=== PATIENT | male | born 1955 | race Caucasian/White ===

== ENCOUNTER → 2016-07-04 | Outpatient (CLI) | payer MEDICAID ==
[~2016-07-04] MED LIST: ACET325T14 PO; GADOBUTROL 7.5 MMOL/7.5 ML PFS ONE
== END | disposition home or self-care (01) ==
LOC: RAD 14:40
PROVIDERS: ATTEND Internal Medicine Critical Care Medicine
DX: C34.90 Malignant neoplasm of unspecified part of unspecified bronchus or lung (principal); I73.9 Peripheral vascular disease, unspecified
CPT/HCPCS: 70553; A9585

== ENCOUNTER → 2016-07-05 | Outpatient (CLI) | payer MEDICAID ==
[~2016-07-05] MED LIST changes: -GADOBUTROL 7.5 MMOL/7.5 ML PFS ONE
== END | disposition home or self-care (01) ==
LOC: PETCFH 09:11
PROVIDERS: ATTEND Internal Medicine Critical Care Medicine
DX: C34.90 Malignant neoplasm of unspecified part of unspecified bronchus or lung (principal); R59.1 Generalized enlarged lymph nodes
CPT/HCPCS: 78815; A9552

== ENCOUNTER 2016-08-07 12:48 | Emergency (ER) | payer MEDICAID ==
[~2016-08-07] VITALS: Ht 190.5 cm; Wt 68.6 kg
[2016-08-07] MEDS ORDERED: GABA300C10 PO (13:11)
[2016-08-07] MEDS ORDERED: FLUT1BLS INH (13:11)
[2016-08-07] MEDS ORDERED: ADENOSINE 6 MG/2 ML ONE ×2 (13:19→14:06)
[2016-08-07] MEDS ORDERED: SODIUM CHLORIDE FLUSH 10ML SYR IVF ONE (13:30)
[2016-08-07] MEDS ORDERED: ADENOSINE 6 MG/2 ML IVPush ONE (13:30)
[2016-08-07] MEDS ORDERED: ASPIRIN 81 MG TABLET CHEW PO ONE (13:30)
[2016-08-07] MEDS ORDERED: SODIUM CHLORIDE 0.9% 1,000ML IVBOLUS ONE (13:30)
[2016-08-07] MEDS ORDERED: ASPIRIN 81 MG TABLET CHEW ONE (13:31)
[2016-08-07] MEDS ORDERED: PROPOFOL 10 MG/ML, 20ML ONE (14:24)
[2016-08-07 14:37] LABS: BLOOD UREA NITROGEN 13 mg/dL (7-18)
[2016-08-07 14:43] LABS: IS PT STATUS REG ER OR PRE ER? YES
[2016-08-07] MEDS ORDERED: HYDROcodone/APAP 5/325 TABLET PO ONE (15:00)
[2016-08-07] MEDS ORDERED: RIVAROXABAN 20 MG TABLET PO ONE (15:17)
[2016-08-07] MEDS ORDERED: METOPROLOL TARTRATE 25 MG TABLET PO ONE (15:30)
[2016-08-07 16:16] VITALS: BP 119/74
== END 2016-08-07 16:20 | disposition home or self-care (01) ==
LOC: ED 14:20
DX: I48.92 Unspecified atrial flutter (principal); E10.65 Type 1 diabetes mellitus with hyperglycemia; F17.210 Nicotine dependence, cigarettes, uncomplicated; Z85.118 Personal history of other malignant neoplasm of bronchus and lung; Z92.21 Personal history of antineoplastic chemotherapy
CPT/HCPCS: 36415; 71010; 80048; 82040; 83735; 84484; 85025; 92960; 93005; 96361; 96374; 99291; J0153; J7030

== ENCOUNTER → 2016-09-25 | Outpatient (CLI) | payer MEDICAID ==
[~2016-09-25] MED LIST changes: +FLUT1BLS INH; +GABA300C10 PO; +METO25TA4 PO; +OMNIPAQUE 350 MG/ML, 75ML BOTTLE ONE
== END | disposition home or self-care (01) ==
LOC: CFH 13:49
PROVIDERS: ATTEND Internal Medicine Hematology & Oncology
DX: C34.11 Malignant neoplasm of upper lobe, right bronchus or lung (principal); J98.11 Atelectasis; R91.8 Other nonspecific abnormal finding of lung field
CPT/HCPCS: 71260; Q9967

== ENCOUNTER → 2016-10-21 | Outpatient (CLI) | payer MEDICAID ==
[~2016-10-21] MED LIST changes: -OMNIPAQUE 350 MG/ML, 75ML BOTTLE ONE
== END | disposition home or self-care (01) ==
LOC: EDSTATUS 10-06 07:18 → ROC 07:19
PROVIDERS: ATTEND Radiology Radiation Oncology
DX: C34.11 Malignant neoplasm of upper lobe, right bronchus or lung (principal); C44.319 Basal cell carcinoma of skin of other parts of face; J18.9 Pneumonia, unspecified organism; F17.210 Nicotine dependence, cigarettes, uncomplicated; Z92.3 Personal history of irradiation
CPT/HCPCS: 99212; G0463

== ENCOUNTER → 2016-12-18 | Outpatient (CLI) | payer MEDICAID ==
[~2016-12-18] MED LIST changes: +OMNIPAQUE 350 MG/ML, 75ML BOTTLE ONE
== END | disposition home or self-care (01) ==
LOC: CFH 13:00
PROVIDERS: ATTEND Internal Medicine Hematology & Oncology
DX: J90 Pleural effusion, not elsewhere classified (principal); J18.9 Pneumonia, unspecified organism; J98.11 Atelectasis; R91.8 Other nonspecific abnormal finding of lung field; C34.11 Malignant neoplasm of upper lobe, right bronchus or lung
CPT/HCPCS: 71260; 82565; Q9967

== ENCOUNTER → 2017-01-24 | Outpatient (CLI) | payer MEDICAID ==
[~2017-01-24] MED LIST changes: -OMNIPAQUE 350 MG/ML, 75ML BOTTLE ONE
== END | disposition home or self-care (01) ==
LOC: CFH 14:43
PROVIDERS: ATTEND Internal Medicine Cardiovascular Disease
DX: I42.9 Cardiomyopathy, unspecified (principal)
CPT/HCPCS: 93306

== ENCOUNTER → 2017-01-30 | Outpatient (CLI) | payer MEDICAID | END | disposition home or self-care (01) | LOC: ROC 11:20 | PROVIDERS: ATTEND Radiology Radiation Oncology | DX: C34.11 Malignant neoplasm of upper lobe, right bronchus or lung (principal) | CPT/HCPCS: 99212; G0463 ==

== ENCOUNTER → 2017-05-05 | Outpatient (CLI) | payer MEDICAID | END | disposition home or self-care (01) | LOC: ROC 09:48 | PROVIDERS: ATTEND Radiology Radiation Oncology | DX: Z08 Encounter for follow-up examination after completed treatment for malignant neoplasm (principal); C34.11 Malignant neoplasm of upper lobe, right bronchus or lung; C44.91 Basal cell carcinoma of skin, unspecified | CPT/HCPCS: 99212; G0463 ==

== ENCOUNTER 2017-06-17 17:46 | Emergency (ER) | payer MEDICAID ==
[~2017-06-17] VITALS: Ht 190.5 cm; Wt 62.4 kg
[2017-06-17 19:51] LABS: BASOPHILS # (AUTO) 0.03 x10^3/uL (0-0.1); BASOPHILS % (AUTO) 1 % (0-1); EOSINOPHILS # (AUTO) 0.14 x10^3/uL (0-0.4); EOSINOPHILS % (AUTO) 2 % (1-7); LYMPHOCYTES # (AUTO) 1.18 x10^3/uL (1-3.4); LYMPHOCYTES % (AUTO) 20 % (22-44); MD NO; MEAN CORPUSCULAR HEMOGLOBIN 31.5 pg (27.5-34.5); MEAN CORPUSCULAR HGB CONC 33.9 g/dL (33.2-36.2); MEAN CORPUSCULAR VOLUME 92.9 fL (81-97); MONOCYTES # (AUTO) 0.77 x10^3/uL (0.2-0.8); MONOCYTES % (AUTO) 13 % (2-9); NEUTROPHILS # (AUTO) 3.69 x10^3/uL (1.8-6.8); NEUTROPHILS % (AUTO) 64 % (42-75); PLATELET COUNT 254 x10^3/uL (130-400); RED BLOOD COUNT 4.17 x10^6/uL (4.38-5.82)
[2017-06-17 20:00] LABS: INTERNATIONAL NORMALIZED RATIO 0.94 (0.93-1.1); PROTHROMBIN TIME 9.8 Seconds (9.6-11.5)
[2017-06-17] MEDS ORDERED: SODIUM CHLORIDE FLUSH 10ML SYR IVF ONE (20:00)
[2017-06-17 20:02] LABS: ALBUMIN 3.2 g/dL (3.4-5.0); ANION GAP 5 mmol/L (5-15); CALCIUM 8.8 mg/dL (8.5-10.1); CHLORIDE 109 mmol/L (98-107)
[2017-06-17 20:05] LABS: ALANINE AMINOTRANSFERASE 22 U/L (12-78); ALKALINE PHOSPHATASE 66 U/L (45-117); BILIRUBIN,TOTAL 0.4 mg/dL (0.2-1.0); CREATININE 0.81 mg/dL (0.7-1.3)
[2017-06-17 20:06] VITALS: BP 113/72
== END 2017-06-17 20:35 | disposition home or self-care (01) ==
LOC: ED 18:53
DX: S06.5X9A Traumatic subdural hemorrhage with loss of consciousness of unspecified duration, initial encounter (principal); Z85.828 Personal history of other malignant neoplasm of skin; X58.XXXA Exposure to other specified factors, initial encounter; Y93.89 Activity, other specified; Y92.89 Other specified places as the place of occurrence of the external cause; Y99.8 Other external cause status
CPT/HCPCS: 36415; 70450; 80053; 85025; 85610; 85730; 99285

== ENCOUNTER → 2017-09-11 | Outpatient (CLI) | payer MEDICAID | END | disposition home or self-care (01) | LOC: CVU 09:59 | PROVIDERS: ATTEND Internal Medicine Cardiovascular Disease | DX: I31.3 Pericardial effusion (noninflammatory) (principal); I07.1 Rheumatic tricuspid insufficiency; I48.92 Unspecified atrial flutter; I42.9 Cardiomyopathy, unspecified; J44.9 Chronic obstructive pulmonary disease, unspecified; Z87.891 Personal history of nicotine dependence; Z85.118 Personal history of other malignant neoplasm of bronchus and lung | CPT/HCPCS: 0399T; 93306 ==

== ENCOUNTER → 2017-09-18 | Outpatient (CLI) | payer MEDICAID | END | disposition home or self-care (01) | LOC: ROC 09:08 | PROVIDERS: ATTEND Radiology Radiation Oncology | DX: C44.310 Basal cell carcinoma of skin of unspecified parts of face (principal); C34.11 Malignant neoplasm of upper lobe, right bronchus or lung | CPT/HCPCS: 99213; G0463 ==

== ENCOUNTER → 2017-10-20 | Outpatient (CLI) | payer MEDICAID ==
[~2017-10-20] MED LIST changes: +COLC0.6T37 PO; +IBUP-1223 PO; +OMNIPAQUE 350 MG/ML, 100ML BOTTLE ONE; +PETR50OI TP
== END | disposition home or self-care (01) ==
LOC: CFH 10:58
PROVIDERS: ATTEND Radiology Radiation Oncology
DX: C44.310 Basal cell carcinoma of skin of unspecified parts of face (principal); C34.11 Malignant neoplasm of upper lobe, right bronchus or lung; J47.9 Bronchiectasis, uncomplicated; J98.11 Atelectasis; J90 Pleural effusion, not elsewhere classified; N28.1 Cyst of kidney, acquired; K57.30 Diverticulosis of large intestine without perforation or abscess without bleeding; R59.0 Localized enlarged lymph nodes
CPT/HCPCS: 71260; 74177; Q9967

== ENCOUNTER → 2018-01-07 | Outpatient (CLI) | payer MEDICAID ==
[~2018-01-07] MED LIST changes: -OMNIPAQUE 350 MG/ML, 100ML BOTTLE ONE
== END | disposition home or self-care (01) ==
LOC: ROC 07:50
PROVIDERS: ATTEND Radiology Radiation Oncology
DX: C44.319 Basal cell carcinoma of skin of other parts of face (principal); Z85.118 Personal history of other malignant neoplasm of bronchus and lung
CPT/HCPCS: 99213; G0463

== ENCOUNTER → 2018-04-14 | Outpatient (CLI) | payer MEDICAID ==
[~2018-04-14] MED LIST changes: +OMNIPAQUE 350 MG/ML, 100ML BOTTLE ONE
== END | disposition home or self-care (01) ==
LOC: CFH 10:27
PROVIDERS: ATTEND Radiology Radiation Oncology
DX: C34.11 Malignant neoplasm of upper lobe, right bronchus or lung (principal); C44.99 Other specified malignant neoplasm of skin, unspecified; M51.37 Other intervertebral disc degeneration, lumbosacral region; K76.89 Other specified diseases of liver
CPT/HCPCS: 71260; 74177; Q9967

== ENCOUNTER 2018-04-15 10:55 | Outpatient (CLI) | payer MEDICAID ==
[~2018-04-15 10:55] MED LIST changes: -OMNIPAQUE 350 MG/ML, 100ML BOTTLE ONE
== END 2018-04-15 23:59 | disposition home or self-care (01) ==
LOC: ROC 10:55
PROVIDERS: ATTEND Radiology Radiation Oncology
DX: C44.310 Basal cell carcinoma of skin of unspecified parts of face (principal)
CPT/HCPCS: 99213; G0463

== ENCOUNTER 2018-10-21 10:01 | Outpatient (CLI) | payer BC, MEDICAID | END 2018-10-21 23:59 | disposition home or self-care (01) | LOC: PETCFH 10:01 | PROVIDERS: ATTEND Radiology Radiation Oncology | DX: C34.12 Malignant neoplasm of upper lobe, left bronchus or lung (principal); R91.8 Other nonspecific abnormal finding of lung field; I10 Essential (primary) hypertension | CPT/HCPCS: 78815; A9552 ==

== ENCOUNTER 2018-10-23 07:29 | Outpatient (CLI) | payer MEDICAID | END 2018-10-23 23:59 | disposition home or self-care (01) | LOC: ROC 07:29 | PROVIDERS: ATTEND Radiology Radiation Oncology | DX: C44.310 Basal cell carcinoma of skin of unspecified parts of face (principal) | CPT/HCPCS: 99213; G0463 ==